=== PATIENT | male | born 1985 | race Caucasian/White ===

== ENCOUNTER 2017-05-19 16:21 | Emergency (ER) | payer MEDICAID ==
[~2017-05-19] VITALS: Ht 188 cm; Wt 85.0 kg
[2017-05-19 16:23] VITALS: BP 118/74
[2017-05-19] MEDS ORDERED: HYDROcodone/APAP 5/325 TABLET PO STA (17:01)
[2017-05-19] MEDS ORDERED: HYDROcodone/APAP 5/325 TABLET ONE (17:18)
== END 2017-05-19 17:27 | disposition home or self-care (01) ==
LOC: ED 17:21
DX: S83.412A Sprain of medial collateral ligament of left knee, initial encounter (principal); X50.1XXA Overexertion from prolonged static or awkward postures, initial encounter; Y93.89 Activity, other specified; Y99.8 Other external cause status; Y92.69 Other specified industrial and construction area as the place of occurrence of the external cause
CPT/HCPCS: 99284